=== PATIENT | female | born 1960 | race Caucasian/White ===

== ENCOUNTER 2024-07-11 11:01 | Outpatient (AMB) | payer OTHER, SELFPAY ==
--- NOTE | 2024-07-11 11:06 | HO.NEPHOV ---
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 She has been on lisinopril 20 mg and hydrochlorothiazide 50 mg a day. Blood pressure has been well controlled. Recently serum creatinine increased from 1.19 up to 1.3 mg/dL and most recent creatinine was 1.25 mg/dL L with a EGFR of 49 mL/minute. Serum sodium was 132 millimoles. There has been no recent change in her medications. She had no specific complaints today. She has no headache nausea vomiting no abdominal pain diarrhea constipation. No urinary symptoms. No hematuria. She consumes wine 1-2 glasses every day. History of smoking in the past she quit smoking 2016. She was to smoke up to 1 pack per day. [facility] Medical History (Updated 07/11/24 @ 11:18 by Shivam Phipps MD) Chronic kidney disease, stage 3b Chronic depression HTN (hypertension) Hypothyroidism Hyperlipemia Surgical History (Updated 07/11/24 @ 11:07 by Ryanne Charles MA) History of hysterectomy Hx of cholecystectomy Family History Mother Diabetes Cancer Father Diabetes Social History (Updated 07/11/24 @ 11:06 by Ryanne Charles MA) Alcohol intake: current Patient Tobacco Use Status: Former Tobacco user Review of Systems Const Denies fever(s) and Denies weight loss Card Denies chest pain Resp Denies cough and Denies hemoptysis GI Denies abdominal pain, Denies diarrhea and Denies nausea Musc Denies back pain Neuro Denies focal weakness Physical Exam Vital Signs: Last Vital Signs Pulse 93 07/11/24 11:09 BP 130/70 07/11/24 11:09 Pulse Ox 98 07/11/24 11:09 Oxygen Delivery Method Room Air 07/11/24 11:09 BMI result Body Mass Index 37.5 Comfortable Neck supple no JVD. Lungs entry equal no rales. Heart S1-S2 heard no gallop or rub. Abdomen soft nontender. Neuro alert awake oriented. No asterixis. Extremities no edema. Results Reviewed Results Reviewed: As of 06/26/2024 Sodium 132 potassium 4.1 BUN 14 creatinine 1.25 Urine protein creatinine ratio was unremarkable Nephrology Results: No Data to Display Assessment & Plan Assessment & Plan (1) Chronic kidney disease, stage 3b: Code(s): N18.32 - Chronic kidney disease, stage 3b Category: Medical Plan 64-year-old man with a longstanding hypertension has CKD. She was a component of acute kidney injury. Acute kidney injury is most likely due to hypoperfusion. Other possibilities would include obstructive uropathy. Based on recent urine studies I do not believe she has any active glomerular nephritis or interstitial disease. She has mild hyponatremia this could be due to the use of hydrochlorothiazide. Recommendation Workup ordered for CKD including renal ultrasonogram and urine studies. Decrease hydrochlorothiazide from 50 mg down to 25 mg a day. Recheck renal panel in the next 2 weeks to see the improvement of renal function. Further workup will be based on the outcome of the above investigations. I will keep you updated. Orders: Orders Comprehensive Met. Panel 2 Weeks N18.32 - Chronic kidney disease, stage 3b UA and rflx microscopic 2 Weeks N18.32 - Chronic kidney disease, stage 3b Complete Blood Count no Diff 2 Weeks N18.32 - Chronic kidney disease, stage 3b Creatinine Urine 2 Weeks N18.32 - Chronic kidney disease, stage 3b Total Protein Urine Random 2 Weeks N18.32 - Chronic kidney disease, stage 3b US renal BI Today N18.32 - Chronic kidney disease, stage 3b Medications: New hydrochlorothiazide 25 mg PO DAILY Coding Level of Care Code New Pt Level 4 (09520) Diagnoses Chronic kidney disease, stage 3b N1832
[2024-07-11 11:09] VITALS: BP 130/70; PULSE 93; O2SAT 98; BMI 37.5
== END 2024-07-11 11:20 | disposition home or self-care (01) ==
PROVIDERS: PCP Internal Medicine; Referring Provider Internal Medicine; Visit Provider Internal Medicine Hypertension Specialist
DX: N18.32 Chronic kidney disease, stage 3b (principal)
CPT/HCPCS: 99204

== ENCOUNTER 2024-07-18 15:26 | Outpatient (REF) | payer OTHER, SELFPAY ==
--- NOTE | ~2024-07-18 | US_ITS ---
EXAMINATION: US RETROPERITONEAL LIMITED (RENAL ONLY) CLINICAL INFORMATION: Right kidney disease type III. COMPARISON: None available. TECHNIQUE: Real-time ultrasound of the kidneys using grayscale and color Doppler technique. FINDINGS: RIGHT KIDNEY: 11 x 6 x 5 cm (SAG x AP x TRV). The kidney is normal in size, contour, and echogenicity. Renal cortical thickness is normal. No hydronephrosis. There is a 2.8 cm exophytic anechoic lesion, upper pole without flow on color Doppler technique or septations. There is flow on color Doppler interrogation of the renal hilum. LEFT KIDNEY: 10 x 6 x 5 cm (SAG x AP x TRV). The kidney is normal in size, contour, and echogenicity. Renal cortical thickness is normal. No solid or cystic lesion. No hydronephrosis. Normal flow on color Doppler interrogation of the renal hilum. US/US renal BI IMPRESSION: No hydronephrosis. 2.8 cm exophytic cyst, upper pole right kidney.. Electronically signed by: Vargas Rojas MD 07/21/2024 01:55 PM EST
== END 2024-07-18 15:27 | disposition home or self-care (01) ==
LOC: HO.HMGCX 15:26
PROVIDERS: PCP Internal Medicine; Visit Provider Internal Medicine Hypertension Specialist
DX: N18.32 Chronic kidney disease, stage 3b (principal)
CPT/HCPCS: 76775

== ENCOUNTER → 2024-07-18 15:28 | Outpatient (BNV) | payer OTHER, SELFPAY | PROVIDERS: PCP Internal Medicine; Visit Provider Radiology Diagnostic Radiology | DX: N28.1 Cyst of kidney, acquired (principal) | CPT/HCPCS: 76775 ==

== ENCOUNTER 2024-08-14 16:02 | Outpatient (AMB) | payer OTHER, SELFPAY ==
[2024-08-14 16:03] VITALS: BP 138/74; PULSE 81; O2SAT 98; BMI 37.2
--- NOTE | 2024-08-14 16:03 | HO.NEPHOV ---
Vital Signs 08/14/24 16:03 Height 5 ft 8 in Weight 245 lb BMI 37.2 BP 138/74 Blood Pressure Location Rt brachial Position Sitting Pulse 81 Pulse Source Pulse Oximeter Pulse Oximetry (%) 98 Oxygen Delivery Method Room Air Intake Visit Reasons: CKD/ Conf Specification Manager Required: No Accompanied by: Self / Same As Patient Allergies No Known Allergies Allergy (Verified 08/14/24 16:06) Medication List - Last Reconciled 08/14/24 by Shivam Phipps MD aspirin 81 mg PO DAILY atorvastatin 40 mg PO BEDTIME cholecalciferol (vitamin D3) 25 mcg PO DAILY hydrochlorothiazide 25 mg PO DAILY levothyroxine mcg PO DAILY lisinopril 20 mg PO DAILY metformin 850 mg PO TID multivitamin 1 tab PO DAILY venlafaxine ER 75 mg PO DAILY HPI Comments Details: Shivani is a pleasant 64-year-old woman with a history of longstanding hypertension referred for CKD. She has been on lisinopril 20 mg and hydrochlorothiazide 50 mg a day. Blood pressure has been well controlled. Recently serum creatinine increased from 1.19 up to 1.3 mg/dL and most recent creatinine was 1.25 mg/dL L with a EGFR of 49 mL/minute. Serum sodium was 132 millimoles. There has been no recent change in her medications. She had no specific complaints today. She has no headache nausea vomiting no abdominal pain diarrhea constipation. No urinary symptoms. No hematuria. She consumes wine 1-2 glasses every day. History of smoking in the past she quit smoking 2016. She was to smoke up to 1 pack per day. 08/14/24 After lowering HCTZ, Cr is unchanged No new issues [facility] Medical History (Updated 07/11/24 @ 11:18 by Shivam Phipps MD) Chronic kidney disease, stage 3b Chronic depression HTN (hypertension) Hypothyroidism Hyperlipemia Surgical History (Updated 07/11/24 @ 11:07 by Ryanne Charles MA) History of hysterectomy Hx of cholecystectomy Family History Mother Diabetes Cancer Father Diabetes Social History (Updated 07/11/24 @ 11:06 by Ryanne Charles MA) Alcohol intake: current Patient Tobacco Use Status: Former Tobacco user Physical Exam Comfortable Neck supple no JVD. Lungs entry equal no rales. Heart S1-S2 heard no gallop or rub. Abdomen soft nontender. Neuro alert awake oriented. No asterixis. Extremities no edema. Results Reviewed Nephrology Results: Renal US 07/18/24 Assessment & Plan Assessment & Plan (1) Chronic kidney disease, stage 3b: Code(s): N18.32 - Chronic kidney disease, stage 3b Category: Medical Plan 64-year-old man with a longstanding hypertension has CKD. She has a component of acute kidney injury. Acute kidney injury is most likely due to hypoperfusion. She has mild hyponatremia this could be due to the use of hydrochlorothiazide. Discontinue hydrochlorothiazide 25 mg a day due to elevated Cr and mild hyponatremia. Recheck renal panel in the next 2 -3 weeks to see the improvement of renal function. No need for futher workup at this time since urine is bland and USG is unremarkable. Added Amlodipine 5 mg QD to optimize BP Renal cyst 2.8 cm exophytic anechoic lesion, upper pole without flow on color Doppler technique or septations. Shall follow as needed Orders: Orders Basic Metabolic Panel 4 Weeks N18.32 - Chronic kidney disease, stage 3b Medications: New amlodipine 5 mg PO DAILY 30 tabs 1RF Coding Level of Care Code Est Pt Level 4 (14440) Diagnoses Chronic kidney disease, stage 3b N18.32
== END 2024-08-14 16:19 | disposition home or self-care (01) ==
PROVIDERS: PCP Internal Medicine; Visit Provider Internal Medicine Hypertension Specialist
DX: N18.32 Chronic kidney disease, stage 3b (principal)
CPT/HCPCS: 99214

== ENCOUNTER 2024-10-07 15:08 | Outpatient (AMB) | payer OTHER, SELFPAY ==
[2024-10-07 15:09] VITALS: BP 120/70; PULSE 91; O2SAT 98; BMI 36.5
--- NOTE | 2024-10-07 15:09 | HO.NEPHOV ---
Vital Signs 10/07/24 15:09 Height 5 ft 8 in Weight 240 lb 2 oz BMI 36.5 BP 120/70 Blood Pressure Location Rt brachial Position Sitting Pulse 91 Pulse Source Pulse Oximeter Pulse Oximetry (%) 98 Oxygen Delivery Method Room Air Intake Visit Reasons: FU Allergies No Known Allergies Allergy (Verified 10/07/24 15:11) Medication List - Last Reconciled 10/07/24 by Shivam Phipps MD amlodipine 5 mg PO DAILY aspirin 81 mg PO DAILY atorvastatin 40 mg PO BEDTIME cholecalciferol (vitamin D3) 25 mcg PO DAILY levothyroxine mcg PO DAILY lisinopril 20 mg PO DAILY metformin 850 mg PO TID multivitamin 1 tab PO DAILY venlafaxine ER 75 mg PO DAILY HPI Comments Details: Shivani is a pleasant 64-year-old woman with a history of longstanding hypertension referred for CKD. She has been on lisinopril 20 mg and hydrochlorothiazide 50 mg a day. Blood pressure has been well controlled. Recently serum creatinine increased from 1.19 up to 1.3 mg/dL and most recent creatinine was 1.25 mg/dL L with a EGFR of 49 mL/minute. Serum sodium was 132 millimoles. There has been no recent change in her medications. She had no specific complaints today. She has no headache nausea vomiting no abdominal pain diarrhea constipation. No urinary symptoms. No hematuria. She consumes wine 1-2 glasses every day. History of smoking in the past she quit smoking 2016. She was to smoke up to 1 pack per day. 08/14/24 After lowering HCTZ, Cr is unchanged ;No new issues 10/07/24 NO new issues today PFSH Medical History Chronic kidney disease, stage 3b Chronic depression HTN (hypertension) Hypothyroidism Hyperlipemia Surgical History History of hysterectomy Hx of cholecystectomy Family History Mother Diabetes Cancer Father Diabetes Social History Alcohol intake: current Patient Tobacco Use Status: Former Tobacco user Physical Exam Vital Signs: Last Vital Signs Pulse 91 10/07/24 15:09 BP 120/70 10/07/24 15:09 Pulse Ox 98 04/15/25 15:09 Oxygen Delivery Method Room Air 10/07/24 15:09 BMI result Body Mass Index 36.5 Comfortable Neck supple no JVD. Lungs entry equal no rales. Heart S1-S2 heard no gallop or rub. Abdomen soft nontender. Neuro alert awake oriented. No asterixis. Extremities no edema. Results Reviewed Results Reviewed: Cr 1.29 Na 133 Nephrology Results: Renal US 07/18/24 Assessment & Plan Assessment & Plan (1) Chronic kidney disease, stage 3b: Code(s): N18.32 - Chronic kidney disease, stage 3b Category: Medical Plan 64-year-old man with a longstanding hypertension has CKD. She has a component of acute kidney injury. Acute kidney injury is most likely due to hypoperfusion. She has mild hyponatremia this could be due to the use of hydrochlorothiazide. Discontinue hydrochlorothiazide 25 mg a day due to elevated Cr and mild hyponatremia. Recheck renal panel in the next 2 -3 weeks to see the improvement of renal function. No need for futher workup at this time since urine is bland and USG is unremarkable. Added Amlodipine 5 mg QD to optimize BP Creatinine is stable at 1.29 Probably new baseline Renal cyst 2.8 cm exophytic anechoic lesion, upper pole without flow on color Doppler technique or septations. Shall follow as needed Orders: Orders Basic Metabolic Panel 6 Months N18.32 - Chronic kidney disease, stage 3b Coding Level of Care Code Est Pt Level 4 (87588) Diagnoses Chronic kidney disease, stage 3b N18.32
== END 2024-10-07 15:22 | disposition home or self-care (01) ==
LOC: HO.HKA 15:08
PROVIDERS: PCP Internal Medicine; Visit Provider Internal Medicine Hypertension Specialist
DX: N18.32 Chronic kidney disease, stage 3b (principal)
CPT/HCPCS: 99214

== ENCOUNTER 2025-03-31 15:07 | Outpatient (AMB) | payer OTHER, SELFPAY ==
[2025-03-31 15:15] VITALS: BP 126/64; PULSE 84; O2SAT 99; BMI 36.2
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
== END 2025-03-31 15:33 | disposition home or self-care (01) ==
LOC: HO.HKA 15:07
PROVIDERS: PCP Internal Medicine; Visit Provider Internal Medicine Hypertension Specialist
DX: N18.32 Chronic kidney disease, stage 3b (principal)
CPT/HCPCS: 99214